=== PATIENT | male | born 1975 | race Caucasian/White ===

== ENCOUNTER 2023-09-26 17:48 | Emergency (ER) | payer MEDICAID ==
[~2023-09-26] VITALS: Ht 180.3 cm; Wt 57.1 kg
[2023-09-26 18:50] LABS: BASOPHILS % (AUTO) 0.3 % (0-1); EOSINOPHILS % (AUTO) 0.2 % (0-6); HEMATOCRIT 43.5 % (42.0-52.0); HEMOGLOBIN 14.9 g/dl (14.0-17.9); LYMPHOCYTES # (AUTO) 1.4 X10'3 (1.1-4.8); LYMPHOCYTES % (AUTO) 25.8 % (21-51); MEAN CORPUSCULAR HEMOGLOBIN 34.1 PG (27.0-31.0); MEAN CORPUSCULAR HGB CONC 34.3 g/dL (33.0-36.5); MEAN CORPUSCULAR VOLUME 99.5 FL (78-98); MEAN PLATELET VOLUME 9.3 FL (7.4-10.4); MONOCYTES # (AUTO) 0.4 X10'3 (0-0.9); MONOCYTES % (AUTO) 7.9 % (2-12); NEUTROPHILS # (AUTO) 3.7 X10'3 (1.8-7.7); NEUTROPHILS % (AUTO) 65.8 % (42-75); PLATELET COUNT 182 X10'3 (140-440); RED BLOOD COUNT 4.37 X10'6 (4.70-6.10); RED CELL DISTRIBUTION WIDTH 14.3 % (11.5-14.5); WHITE BLOOD COUNT 5.6 X10'3 (4.5-11.0)
[2023-09-26 18:58] LABS: ALANINE AMINOTRANSFERASE 127 U/L (12-78); ALBUMIN 3.8 G/DL (3.4-5.0); ALBUMIN/GLOBULIN RATIO 0.9 (1.1-1.5); ALKALINE PHOSPHATASE 127 IU/L (46-116); ANION GAP 9 (8-16); APTT 27 SECONDS (22-32); ASPARTATE AMINO TRANSFERASE 274 U/L (10-37); BILIRUBIN,TOTAL 0.7 MG/DL (0.1-1.0); BLOOD UREA NITROGEN 12 MG/DL (7-18); BUN/CREATININE RATIO 7.1 (10.0-20.0); CALCIUM 9.7 MG/DL (8.5-10.1); CHLORIDE 97 MMOL/L (99-107); CREATININE 1.68 MG/DL (0.60-1.10); GLUCOSE 124 MG/DL (70-104); LIPASE 51 U/L (16-77); PROTHROMBIN TIME 10.7 SECONDS (9.0-12.0); SODIUM 138 MMOL/L (135-145); TOTAL CARBON DIOXIDE 32.3 MMOL/L (24-32); eCRCL 45 ML/MIN; eGFR 44 ML/MIN
[2023-09-26 19:01] LABS: POTASSIUM 2.8 MMOL/L (3.5-5.1)
[2023-09-26] MEDS ORDERED: POTA20PA40 PO (20:52)
[2023-09-26] MEDS ORDERED: ONDA-243 PO (20:52)
[2023-09-26 21:01] VITALS: PULSE 114
[2023-09-26] MEDS: potassium bicarbonate/cit acid 25mEq tablet.effervescent PO STA (21:13)
[2023-09-26 21:23] VITALS: BP 109/89; RESP 18; TEMP 98; O2SAT 98
== END 2023-09-26 21:24 | disposition home or self-care (01) ==
LOC: ER 17:49
DX: R10.12 Left upper quadrant pain (principal); E87.6 Hypokalemia; R11.0 Nausea
CPT/HCPCS: 36415; 74176; 80053; 83690; 85025; 85610; 85730; 99284

== ENCOUNTER 2024-05-12 13:44 | Emergency (ER) | payer MEDICAID ==
[~2024-05-12] VITALS: Ht 180.3 cm; Wt 61.4 kg
[~2024-05-12 13:44] MED LIST: ONDA-243 PO; POTA20PA40 PO
[2024-05-12 14:19] VITALS: TEMP 97.2
[2024-05-12] MEDS: normal saline 1000ml 1,000 ML IV ONE (16:03)
[2024-05-12 16:30] LABS: BASOPHILS % (AUTO) 0.3 % (0-1); EOSINOPHILS % (AUTO) 0.1 % (0-6); HEMATOCRIT 42.1 % (42.0-52.0); HEMOGLOBIN 14.2 g/dl (14.0-17.9); LYMPHOCYTES # (AUTO) 0.5 X10'3 (1.1-4.8); LYMPHOCYTES % (AUTO) 11.8 % (21-51); MEAN CORPUSCULAR HGB CONC 33.7 g/dL (33.0-36.5); MEAN CORPUSCULAR VOLUME 97.7 FL (78-98); MEAN PLATELET VOLUME 8.8 FL (7.4-10.4); MONOCYTES # (AUTO) 0.4 X10'3 (0-0.9); MONOCYTES % (AUTO) 8.9 % (2-12); NEUTROPHILS # (AUTO) 3.4 X10'3 (1.8-7.7); NEUTROPHILS % (AUTO) 78.9 % (42-75); PLATELET COUNT 95 X10'3 (140-440); RED BLOOD COUNT 4.31 X10'6 (4.70-6.10); RED CELL DISTRIBUTION WIDTH 13.2 % (11.5-14.5); WHITE BLOOD COUNT 4.3 X10'3 (4.5-11.0)
[2024-05-12 16:54] LABS: ALANINE AMINOTRANSFERASE 158 U/L (12-78); ALBUMIN 4.2 G/DL (3.4-5.0); ALKALINE PHOSPHATASE 95 IU/L (46-116); ANION GAP 12 (8-16); ASPARTATE AMINO TRANSFERASE 182 U/L (10-37); BILIRUBIN,TOTAL 0.9 MG/DL (0.1-1.0); BLOOD UREA NITROGEN 12 MG/DL (7-18); BUN/CREATININE RATIO 17.6 (10.0-20.0); CALCIUM 9.3 MG/DL (8.5-10.1); CHLORIDE 100 MMOL/L (99-107); CREATININE 0.68 MG/DL (0.60-1.10); GLUCOSE 92 MG/DL (70-104); MAGNESIUM 1.4 MG/DL (1.5-2.4); PHOSPHORUS 3.6 MG/DL (2.3-4.5); POTASSIUM 3.4 MMOL/L (3.5-5.1); SODIUM 140 MMOL/L (135-145); TOTAL CARBON DIOXIDE 28.5 MMOL/L (24-32); TOTAL PROTEIN 8.4 G/DL (6.4-8.2); eCRCL 118 ML/MIN; eGFR > 90 ML/MIN
[2024-05-12 16:57] LABS: ETHANOL < 10 MG/DL (<10)
[2024-05-12] MEDS ORDERED: potassium chloride 8mEq ER tablet PO SCH (17:05)
[2024-05-12] MEDS: potassium chloride 8mEq ER tablet PO ONE (17:18)
[2024-05-12] MEDS: magnesium oxide 400mg tablet PO ONE (17:18)
[2024-05-12] MEDS ORDERED: POTA-192 PO (17:30)
[2024-05-12] MEDS ORDERED: MAGN400T52 PO (17:30)
[2024-05-12 17:59] VITALS: BP 155/95; PULSE 85; RESP 16; O2SAT 98
== END 2024-05-12 18:00 | disposition home or self-care (01) ==
LOC: ER 13:45
DX: E87.6 Hypokalemia (principal); E86.0 Dehydration; E83.42 Hypomagnesemia; F41.9 Anxiety disorder, unspecified; F32.A Depression, unspecified
CPT/HCPCS: 80053; 80320; 83735; 84100; 85025; 96360; 99283; J7030

== ENCOUNTER 2024-09-10 16:23 | Emergency (ER) | payer MEDICAID ==
[~2024-09-10] VITALS: Ht 180.3 cm; Wt 59.7 kg
[~2024-09-10 16:23] MED LIST changes: +MAGN400T52 PO
--- NOTE | 2024-09-10 17:04 | ELECTROCARDIOGRAPH REPORT ---
[facility] Test Date: 2024-09-10 Test Time: 17:01:44 Pat Name: CODIE NUR [facility]- [id number] Room: Gender: M Miner Operator: : 1975 Requested By: ELVIE NUÑEZ Order Number: [id number] Reading MD: Dr. Van Jarvis Measurements Intervals [place] Rate: 120 P: 78 MT: 146 QRS: -74 QRSD: 86 T: 73 QT: 300 QTc: 424 Interpretive Statements Sinus tachycardia Probable left atrial enlargement Left anterior fascicular block Anteroseptal infarct, age indeterminate Electronically Signed On 09-10-2024 18:16:[address] Van Jarvis Please click the below link to view image of tracing.
--- NOTE | 2024-09-10 19:05 | RADIOLOGY REPORT ---
CHEST RADIOGRAPH Indication: weakness Technique: Frontal and lateral view of the chest was obtained Comparison: None FINDINGS: Lines and Tubes: None Lungs: Clear Pleura: No effusion. No pneumothorax. Cardiomediastinal contours: Unremarkable Bones: Unremarkable IMPRESSION: No abnormality demonstrated.
[2024-09-10 19:32] LABS: CREATININE 1.15 MG/DL (0.60-1.10); ETHANOL 258 MG/DL (<10); MEAN PLATELET VOLUME 8.5 FL (7.4-10.4); RED CELL DISTRIBUTION WIDTH 12.9 % (11.5-14.5); TOTAL CARBON DIOXIDE 25.0 MMOL/L (24-32); eCRCL 68 ML/MIN; eGFR 68 ML/MIN
[2024-09-10 20:09] LABS: LYMPHOCYTES % (MANUAL) 32.0 % (21-51); MONOCYTES % (MANUAL) 7.0 % (2-12); NEUTROPHILS % (MANUAL) 61.0 % (42-75); PLATELET ESTIMATE NORMAL
--- NOTE | 2024-09-10 21:51 | Physician Documentation ---
History of Present Illness ~ Chief Complaint: Weakness Stated Complaint: VOMITING/FATIGUE Time Seen by MD: 21:44 OK to notify your PCP?: Yes Primary Medical Doctor: none Source: patient, RN/MD, RN notes reviewed, old records Mode of Arrival: POV Exam Limitations: no limitations HPI 48 year old male seen in bed 04 presents to the emergency department for complaints of weakness. He states that he has been working outside in the heat recently which is causing his pain to worsen. He presents with a list of complaints today but the main ones being back pain, abdominal pain with vomiting. Patient denies any black stools at this time. He endorses daily alcohol use. Medication Reconciliation Allergies: Coded Allergies: No Known Allergies (Unverified , 09/10/24) Scheduled Magnesium Oxide (Magnesium Oxide), 1 TAB PO Q12H Pantoprazole Sodium (Protonix), 1 TAB PO DAILY Potassium Chloride (Klor-Con), 1 PKT PO DAILY Potassium Chloride (Potassium Chloride), 1 TAB PO DAILY Scheduled PRN ONDANSETRON ODT 4mg tablet (Ondansetron Odt), 1 TAB PO Q6H PRN PRN for nausea/vomiting Past Medical History Past Medical History: Anxiety, Depression Review of Systems All Other Systems at this time: Reviewed and Negative ROS As stated above in the HPI, otherwise all systems are reviewed and negative. Physical Exam Vital Signs: RN Vital Signs have been reviewed: Yes, Temperature: 98.1, Source: Temporal, Heart Rate: 104, Respiratory Rate: 15, BP: 144/104, Pulse Oximetry: 98, Weight: 59.700 Oxygen Flow Rate: 0 Pulse Oximetry Reflects: adequate oxygenation Physical Exam General: Looks older than stated age. The patient is well developed, well nourished, nontoxic appearing and is in no acute distress. Skin: [place], warm and dry with no rashes. HEENT: Head was normocephalic and atraumatic. Eyes - pupils equal, round, reactive to light and accommodation. Extraocular movements were intact. Conjunctivae were nonicteric. Ears - bilateral tympanic membranes were normal. The mouth and oropharynx were clear with moist mucous membranes. There were no pharyngeal exudates or erythema. Neck: Supple and nontender. There was no jugular venous distention, lymphadenopathy, thyromegaly or masses. Chest: Clear to auscultation bilaterally without wheezes, rales or rhonchi. No accessory muscle use. No dullness to percussion. Heart: Rapid heart rate. S1, S2. No murmurs. Palpation of the chest wall was normal. No rubs or thrills. Abdomen: Soft, nontender and nondistended. Positive bowel sounds. No guarding or rebound. No hepatosplenomegaly or palpable masses. Extremities: No cyanosis, clubbing or edema. The patient moves all extremities. Pulses were equal and symmetric. Neurologic: Cranial nerves II-XII were intact. Sensation was intact to light touch throughout. Motor strength was 5/5 in all four extremities. Deep tendon reflexes were intact in both upper and lower extremities. Psychologic: The patient was oriented to person, place and time. The patient demonstrated appropriate judgement and insight. Progress Results/Orders Results/Orders Vital Signs 09/10/24 09/10/24 09/10/24 09/10/24 16:54 20:01 21:50 21:54 Temp 98.1 Pulse 117 104 101 Resp 16 15 18 18 B/P (MAP) 151/97 144/104 (117) 136/97 (110) Pulse Ox 97 98 96 O2 Flow Rate 0 Laboratory Tests Test 09/10/24 19:10 White Blood Count 2.9 L Red Blood Count 4.46 L Hemoglobin 14.7 Hematocrit 42.0 Mean Corpuscular Volume 94.2 Mean Corpuscular Hemoglobin 32.9 H Mean Corpuscular Hemoglobin Concent 34.9 Red Cell Distribution Width 12.9 Platelet Count 174 Mean Platelet Volume 8.5 Neutrophils (%) (Auto) 50.2 Lymphocytes (%) (Auto) 37.1 Monocytes (%) (Auto) 11.1 Eosinophils (%) (Auto) 0.6 Basophils (%) (Auto) 1.0 Neutrophils # (Auto) 1.4 L Lymphocytes # (Auto) 1.1 Monocytes # (Auto) 0.3 Eosinophils # (Auto) 0.0 Basophils # (Auto) 0.0 CBC Comment Differential Total Cells Counted 100 Neutrophils % (Manual) 61.0 Lymphocytes % (Manual) 32.0 Monocytes % (Manual) 7.0 Platelet Estimate Normal Red Blood Cell Morphology Normal Basophilic Stippling Sodium Level 135 Potassium Level 3.5 Chloride Level 96 L Carbon Dioxide Level 25.0 Anion Gap 14 Blood Urea Nitrogen 15 Creatinine 1.15 H Estimated GFR/1.73 m2 68 BUN/Creatinine Ratio 13.0 Glucose Level 131 H Calcium Level 9.0 Magnesium Level 1.7 Total Bilirubin 0.5 Aspartate Amino Transf (AST/SGOT) 256 H Alanine Aminotransferase (ALT/SGPT) 144 H Alkaline Phosphatase 120 H Troponin I High Sensitivity 6 Total Protein 8.1 Albumin 4.1 Globulin 4.0 Albumin/Globulin Ratio 1.0 L Lipase 65 Procalcitonin 0.21 Chemistry Comments Ethyl Alcohol Level 258 H EKG/XRAY/CT/US/VASC/MRI EKG : Additional Comment [facility] Test Date: 2024-09-10 Test Time: 17:01:44 Pat Name: CODIE NUR Department: [facility] Patient ID: [id number] Room: Gender: M Automobile Mechanic: : 1975 Requested By: ELVIE NUÑEZ Order Number: [id number] Reading MD: Dr. Van Jarvis Measurements Intervals [place] Rate: 120 P: 78 SD: 146 QRS: -74 QRSD: 86 T: 73 QT: 300 QTc: 424 Interpretive Statements Sinus tachycardia Probable left atrial enlargement Left anterior fascicular block Anteroseptal infarct, age indeterminate Electronically Signed On 09-10-2024 18:16:[address] Van Jarvis Please click the below link to view image of tracing. EKG Date and Time:09/10/24 170 Electronically Signed by: VAN JARVIS MD Date and Time: 09/10/24 181 Chest X-Ray : Additional Comments CHEST RADIOGRAPH Indication: weakness Technique: Frontal and lateral view of the chest was obtained Comparison: None FINDINGS: Lines and Tubes: None Lungs: Clear Pleura: No effusion. No pneumothorax. Cardiomediastinal contours: Unremarkable Bones: Unremarkable IMPRESSION: No abnormality demonstrated. Electronically Signed by:NESTOR PAINTER MD Date & Time: 09/10/24 190 Dictated by: NESTOR PAINTER MD Dictation date and time: 09/10/24 1840 Departure Time of Disposition: 22:11 Disposition: 01 HOME / SELF CARE / HOMELESS Impression: Primary Impression: Transaminitis Additional Impressions: Weakness Alcohol intoxication Condition: Stable Discharge Instructions: Weakness, [id number] Referrals: NO PRIMARY CARE PROVIDER (PCP) Prescriptions Potassium Chloride (Potassium Chloride) 10 Meq Tab.prt.sr 1 TAB PO DAILY for 30 Days, #30 TAB 0 Refills Prov: VAN JARVIS MD 09/10/24 Pantoprazole Sodium (Protonix) 20 Mg Tablet.dr 1 TAB PO DAILY for 30 Days, #30 TAB 0 Refills Prov: VAN JARVIS MD 09/10/24 Magnesium Oxide (Magnesium Oxide) 400 Mg Tablet 1 TAB PO Q12H for 30 Days, #60 TAB 0 Refills Prov: VAN JARVIS MD 09/10/24 Education Educated: Patient, Family Educated regarding: diagnosis, treatment, prognosis, need for follow up Signature Scribe Signature: Scribed for Van Jarvis MD by Darrius Iyer . 09/10/24 22:11 Attestation: The note accurately reflects work and decisions made by me.Van Jarvis MD 09/10/24 21:51 VAN JARVIS MD Sep 10, 2024 21:51 DARRIUS ALLRED Sep 10, 2024 22:11
[2024-09-10] MEDS ORDERED: PANT20TA2 PO (22:10)
[2024-09-10] MEDS ORDERED: POTA-205 PO (22:10)
[2024-09-10] MEDS ORDERED: MAGN400T52 PO (22:10)
[2024-09-10] MEDS: potassium Cl 20 mEq SR tablet PO STA (23:03)
[2024-09-10] MEDS: pantoprazole 40mg Tablet.DR PO SCH (23:04)
[2024-09-10] MEDS: folic acid/vitamin B complex w/vitamin C 0.8mg tablet PO STA (23:04)
[2024-09-10 23:14] VITALS: BP 141/96; PULSE 87; RESP 16; TEMP 98.6; O2SAT 98
== END 2024-09-10 23:39 | disposition home or self-care (01) ==
LOC: ER 16:24
DX: R53.1 Weakness (principal); R74.01 Elevation of levels of liver transaminase levels; F10.129 Alcohol abuse with intoxication, unspecified; Z79.899 Other long term (current) drug therapy; Y90.8 Blood alcohol level of 240 mg/100 ml or more
CPT/HCPCS: 36415; 71046; 80053; 80320; 83690; 83735; 84145; 84484; 85007; 85025; 93005; 99285